=== PATIENT | male | born 1960 ===

== ENCOUNTER 2025-06-03 10:22 | Inpatient (IN) | payer MEDICARE ==
[~2025-06-03] VITALS: Ht 170.2 cm; Wt 100.4 kg
[~2025-06-03 10:22] MED LIST: ASPI-1444 PO; CLOP75TA83 PO; GABA-1181 PO; INSLAN SQ; INSREG SQ; IPRA4AER IH; LIDO-57 TP; MONT-35 PO; MULT-248 PO; NALO4SPR NASAL; OLOP5DRO28 OU; OMEP-148 PO; ONDA-104 PO; PRAZ1 PO; RISP-31 PO; ROSU20TA98 PO; SERT-162 PO; THEO300T52 PO; TRAM50TA5 PO
[2025-06-03 10:40] LABS: ABG BASE EXCESS 4.2 mmol/L (-2.0-3.0); ABG CARBOXYHEMOGLOBIN 1.0 % (0.5-1.5); ABG HCO3 28.0 mmol/L (21.0-28.0); ABG METHEMOGLOBIN 1.0 % (0.0-1.5); ABG OXYGEN CONTENT 12.5 mL/dL (15.0-23.0); ABG OXYGEN SATURATION 98.6 % (94.0-98.0); ABG OXYHEMOGLOBIN 96.6 % (94.0-98.0); ABG PCO2 40 mmHg (32.0-48.0); ABG PH 7.465 (7.350-7.450); ABG TOTAL HEMOGLOBIN 9.1 G/dL (13.5-17.5); FRACTIONATED INSPIRED OXYGEN 100.0 % (21-100.0); PO2, ARTERIAL BG 104.7 mmHg (83.0-108.0); SOURCE, BLOOD GAS ARTERIAL; TEMPERATURE, FAHRENHEIT, BG 98.6 FAHREN (96.0-98.6)
[2025-06-03 10:41] LABS: ALLEN TEST, BLOOD GAS Positive; SITE, BLOOD GAS LFT RADIAL
[2025-06-03 10:42] LABS: ABG A-A DIFF O2 568.5 mmHg (10-20.0); FLOW, BLOOD GAS 15.00 L/min (0.00-15.00); O2 DEVICE,BLOOD GAS CPAP (ROOM AIR); PEEP,BG 5 cm H2O
[2025-06-03 10:45] VITALS: PULSE 109; RESP 19; O2SAT 100
[2025-06-03 10:53] LABS: COVID AG,FIA SOURCE NASAL SWAB
[2025-06-03 10:56] LABS: PLATELET COUNT (AUTO) 329 K/uL (150-450); RED BLOOD CELL COUNT(AUTO) 3.70 MIL/uL (4.50-5.90); RED CELL DISTRIBUTION WIDTH 19.3 % (11.5-14.5); WHITE BLOOD COUNT (AUTO) 5.2 K/uL (4.5-11.0)
[2025-06-03 11:07] LABS: CALCIUM, TOTAL 8.7 mg/dL (8.8-10.5); CREATININE 1.04 mg/dL (0.60-1.30); GLOMERULAR FILTR. RATE CALC > 60 mL/min (>60); GLUCOSE,RANDOM 189 mg/dL (70-110); SODIUM SERUM 134 mmol/L (136-145); UREA NITROGEN, BLOOD 24 mg/dL (7-18)
[2025-06-03 11:14] LABS: ASPARTATE AMINOTRANSFERASE 53.0 U/L (15-37); CREATINE KINASE, TOTAL ONLY 135.0 U/L (39-308); TOTAL PROTEIN, SERUM 7.6 g/dL (6.4-8.2)
[2025-06-03 11:15] LABS: TROPONIN I-HIGH SENSITIVITY 48 ng/L (<76)
[2025-06-03 11:45] LABS: RBC MORPHOLOGY COMMENT ABNORMAL RBC MORPH
[2025-06-03 12:12] LABS: SARS-COV2 (COVID) ANTIGEN,FIA Negative (Negative)
[2025-06-03 12:54] LABS: INFLUENZA TYPE A NEGATIVE FOR TYPE A (NEGATIVE); INFLUENZA TYPE B NEGATIVE FOR TYPE B (NEGATIVE)
[2025-06-03] MEDS: FUROSEMIDE 40 MG/4 ML VIAL IVP ONE (13:01)
[2025-06-03] MEDS: CefTRIAXone 1 GM/DEXTROSE 50 ML IV ONE (13:01)
[2025-06-03 13:10] VITALS: PULSE 103; RESP 20; O2SAT 96
[2025-06-03] MEDS ORDERED: SODIUM CHLORIDE 0.9% 100 ML ONE (13:15)
[2025-06-03] MEDS ORDERED: 0.9% SODIUM CHLORIDE 10 ML SYRINGE IVP ONE (13:15)
[2025-06-03] MEDS ORDERED: IOHEXOL 350 MG/ML 100 ML VIAL ONE (13:15)
[2025-06-03 13:27] LABS: LACTIC ACID 1.4 mmol/L (0.4-2.0)
[2025-06-03] MEDS: AZITHROMYCIN 500 MG/NS 250 ML IV ONE (13:35)
[2025-06-03] MEDS ORDERED: DEXTROSE 50%-WATER 25 GM/50 ML SYRINGE IVP PRN (14:15)
[2025-06-03] MEDS ORDERED: MAGNESIUM HYDROXIDE SUSPENSION 30 ML UDCUP PO PRN (14:30)
[2025-06-03] MEDS: HEPARIN SODIUM,PORCINE 5,000 UNITS/ML VIAL SQ SCH (15:12)
[2025-06-03] MEDS ORDERED: 0.9% SODIUM CHLORIDE 5 ML NEB SOLUTION NEB ONE (16:06)
[2025-06-03 16:09] VITALS: PULSE 54; RESP 31; O2SAT 99
[2025-06-03] MEDS: ALBUTEROL SULFATE 2.5 MG/0.5 ML NEB SOLUTION NEB PRN (16:09)
[2025-06-03 16:11] VITALS: PULSE 115; RESP 28; O2SAT 100
[2025-06-03 16:24] VITALS: PULSE 104; RESP 28; O2SAT 100
[2025-06-03 16:51] LABS: APPEARANCE,URINE CLEAR (CLEAR); GLUCOSE, URINE (UA) 300-500 mg/dL (NEGATIVE); LEUKOCYTE ESTERASE ,URINE NEGATIVE (NEGATIVE); NITRATE,URINE NEGATIVE (NEGATIVE); OCCULT BLOOD,URINE TRACE (NEGATIVE); SPECIFIC GRAVITIY, URINE 1.035 (1.003-1.030)
[2025-06-03] MEDS: LORazepam 2 MG/ML VIAL IVP PRN (18:05)
[2025-06-03] MEDS: DOCUSATE SODIUM 100 MG CAPSULE PO SCH (20:13)
[2025-06-03 20:24] LABS: SITE, BLOOD GAS LFT RADIAL; SOURCE, BLOOD GAS ABG
[2025-06-03 20:25] LABS: ABG BASE EXCESS 5.3 mmol/L (-2.0-3.0); ABG CARBOXYHEMOGLOBIN 0.5 % (0.5-1.5); ABG HCO3 28.5 mmol/L (21.0-28.0); ABG METHEMOGLOBIN 1.0 % (0.0-1.5); ABG OXYGEN SATURATION 97.8 % (94.0-98.0); ABG OXYHEMOGLOBIN 97.8 % (94.0-98.0); ABG PCO2 51 mmHg (32.0-48.0); ABG PH 7.388 (7.350-7.450); ABG TOTAL HEMOGLOBIN 9.9 G/dL (13.5-17.5); ALLEN TEST, BLOOD GAS POS; PO2, ARTERIAL BG 146.3 mmHg (83.0-108.0); TEMPERATURE, FAHRENHEIT, BG 98.6 FAHREN (96.0-98.6)
[2025-06-03 20:26] LABS: ABG A-A DIFF O2 15.4 mmHg (10-20.0); FRACTIONATED INSPIRED OXYGEN 50.0 % (21-100.0); O2 DEVICE,BLOOD GAS BIPAP (ROOM AIR); PEEP,BG 4 cm H2O; SET RATE, BG 16.0 min.
[2025-06-03 21:00] VITALS: BP 94/60; PULSE 105; PULSE 109; RESP 22; RESP 25; TEMP 97; O2SAT 100; O2SAT 98
[2025-06-03 21:45] LABS: GLUCOMETER DEV NAME(LOC) ICUN.7; GLUCOSE,POINT OF CARE 213 MG/DL (70-110)
[2025-06-03] MEDS: ETHYL ALCOHOL 62% ANTISEPTIC NASAL SANITIZER 0.6 ML AMPUL NASAL SCH (21:57)
[2025-06-03] MEDS: CHLORHEXIDINE GLUCONATE 2% TOWELETTE [2'S/6'S] TP SCH (21:58)
[2025-06-03] MEDS: INSULIN LISPRO 100 UNITS/ML SQ PRN (22:31)
[2025-06-04] VITALS (13 sets, daily range): BP systolic 85–134; BP diastolic 57–94; PULSE 92–115; RESP 20–34; TEMP 97–97.8; O2SAT 89–100
[2025-06-04 01:39] LABS: ABG OXYGEN CONTENT 13.9 mL/dL (15.0-23.0)
[2025-06-04 06:09] LABS: CALCIUM, TOTAL 8.7 mg/dL (8.8-10.5); CREATININE 0.92 mg/dL (0.60-1.30); GLOMERULAR FILTR. RATE CALC > 60 mL/min (>60); GLUCOSE,RANDOM 190 mg/dL (70-110); SODIUM SERUM 137 mmol/L (136-145); UREA NITROGEN, BLOOD 29 mg/dL (7-18)
[2025-06-04 06:29] LABS: PLATELET COUNT (AUTO) 340 K/uL (150-450); RED BLOOD CELL COUNT(AUTO) 3.93 MIL/uL (4.50-5.90); RED CELL DISTRIBUTION WIDTH 19.4 % (11.5-14.5); WHITE BLOOD COUNT (AUTO) 1.7 K/uL (4.5-11.0)
[2025-06-04 06:46] LABS: RBC MORPHOLOGY COMMENT ABNORMAL RBC MORPH
[2025-06-04 07:06] LABS: GLUCOMETER DEV NAME(LOC) ICUN.7; GLUCOSE,POINT OF CARE 222 MG/DL (70-110)
[2025-06-04] MEDS: FUROSEMIDE 20 MG/2 ML VIAL IVP SCH (08:35)
[2025-06-04] MEDS: PANTOPRAZOLE SODIUM 40 MG/VIAL IVP SCH (08:35)
[2025-06-04] MEDS: DEXMEDETOMIDINE 400 MCG/NS 100 ML IV PRN (12:06)
[2025-06-04 12:20] LABS: GLUCOMETER DEV NAME(LOC) ICUN.7; GLUCOSE,POINT OF CARE 152 MG/DL (70-110)
[2025-06-04 12:26] LABS: ABG A-A DIFF O2 45.0 mmHg (10-20.0); ABG BASE EXCESS -0.5 mmol/L (-2.0-3.0); ABG CARBOXYHEMOGLOBIN 0.4 % (0.5-1.5); ABG HCO3 24.2 mmol/L (21.0-28.0); ABG METHEMOGLOBIN 0.0 % (0.0-1.5); ABG OXYGEN CONTENT 11.6 mL/dL (15.0-23.0); ABG OXYGEN SATURATION 96.3 % (94.0-98.0); ABG OXYHEMOGLOBIN 95.9 % (94.0-98.0); ABG PCO2 34 mmHg (32.0-48.0); ABG PH 7.452 (7.350-7.450); ABG TOTAL HEMOGLOBIN 8.5 G/dL (13.5-17.5); FRACTIONATED INSPIRED OXYGEN 24.0 % (21-100.0); O2 DEVICE,BLOOD GAS BIPAP (ROOM AIR); PATIENT RATE, BG 28.0 min.; PO2, ARTERIAL BG 85.8 mmHg (83.0-108.0); SET RATE, BG 16.0 min.; SITE, BLOOD GAS RT BRACHIAL; SOURCE, BLOOD GAS ARTERIAL; TEMPERATURE, FAHRENHEIT, BG 97.0 FAHREN (96.0-98.6)
[2025-06-04 12:27] LABS: INSPIRATORY TIME, BG 0.9 SEC; PRESSURE SUPPORT, BG 12 cm H2O; SPONTANEOUS VT, BG 540 ml
[2025-06-04] MEDS: CefTRIAXone 1 GM/DEXTROSE 50 ML IV SCH (12:56)
[2025-06-04] MEDS ORDERED: SODIUM CHLORIDE 0.9% 250 ML IV ONE (12:58)
[2025-06-04] MEDS: AZITHROMYCIN 500 MG/NS 250 ML IV SCH (13:45)
[2025-06-04 19:06] LABS: GLUCOMETER DEV NAME(LOC) ICU.S7; GLUCOSE,POINT OF CARE 183 MG/DL (70-110)
[2025-06-05] VITALS (18 sets, daily range): BP systolic 97–105; BP diastolic 61–74; PULSE 87–105; RESP 18–31; TEMP 97.7–98.9; O2SAT 95–100
[2025-06-05 00:12] LABS: GLUCOMETER DEV NAME(LOC) ICUN.7; GLUCOSE,POINT OF CARE 179 MG/DL (70-110)
[2025-06-05] MEDS ORDERED: ALBUTEROL SULFATE 2.5 MG/0.5 ML 5 ML NEB SOLUTION NEB ONE (00:38)
[2025-06-05 06:18] LABS: CALCIUM, TOTAL 8.4 mg/dL (8.8-10.5); CREATININE 1.24 mg/dL (0.60-1.30); GLOMERULAR FILTR. RATE CALC 59.0 mL/min (>60); GLUCOSE,RANDOM 334.0 mg/dL (70-110); SODIUM SERUM 132.0 mmol/L (136-145); UREA NITROGEN, BLOOD 50.0 mg/dL (7-18)
[2025-06-05 06:55] LABS: C.DIFF GDH ANTIGEN, Stool Negative (Negative); C.DIFF TOXINS A&B, Stool Negative (Negative)
[2025-06-05 11:54] LABS: PLATELET COUNT (AUTO) 318 K/uL (150-450); RED BLOOD CELL COUNT(AUTO) 3.57 MIL/uL (4.50-5.90); RED CELL DISTRIBUTION WIDTH 19.4 % (11.5-14.5); WHITE BLOOD COUNT (AUTO) 3.9 K/uL (4.5-11.0)
[2025-06-05 17:20] LABS: GLUCOMETER DEV NAME(LOC) 5N.1D; GLUCOSE,POINT OF CARE 327 MG/DL (70-110)
[2025-06-05 17:21] LABS: GLUCOMETER DEV NAME(LOC) 5N.1D; GLUCOSE,POINT OF CARE 274 MG/DL (70-110)
[2025-06-05 17:21] LABS: GLUCOMETER DEV NAME(LOC) 5N.1D; GLUCOSE,POINT OF CARE 418 MG/DL (70-110)
[2025-06-05] MEDS: INSULIN LISPRO 100 UNITS/ML SQ ONE (17:26)
[2025-06-05 20:40] LABS: GLUCOMETER DEV NAME(LOC) 5N.1D; GLUCOSE,POINT OF CARE 336 MG/DL (70-110)
[2025-06-05] MEDS: BUDESONIDE 0.5 MG/2 ML NEB SOLUTION NEB SCH (20:59)
[2025-06-06] VITALS (12 sets, daily range): BP systolic 101–151; BP diastolic 64–98; PULSE 90–110; RESP 16–33; TEMP 97.5–98.2; O2SAT 98–100
[2025-06-06] MEDS: ACETAMINOPHEN 325 MG TABLET PO PRN (01:49)
[2025-06-06 06:42] LABS: PLATELET COUNT (AUTO) 282 K/uL (150-450); RED BLOOD CELL COUNT(AUTO) 3.78 MIL/uL (4.50-5.90); RED CELL DISTRIBUTION WIDTH 19.2 % (11.5-14.5); WHITE BLOOD COUNT (AUTO) 3.5 K/uL (4.5-11.0)
[2025-06-06 06:59] LABS: CALCIUM, TOTAL 8.4 mg/dL (8.8-10.5); CREATININE 1.66 mg/dL (0.60-1.30); GLOMERULAR FILTR. RATE CALC 42.0 mL/min (>60); SODIUM SERUM 128.0 mmol/L (136-145); UREA NITROGEN, BLOOD 68.0 mg/dL (7-18)
[2025-06-06 07:01] LABS: GLUCOSE,RANDOM 412.0 mg/dL (70-110)
[2025-06-06 08:11] LABS: GLUCOMETER DEV NAME(LOC) 5S.2E; GLUCOSE,POINT OF CARE 379 MG/DL (70-110)
[2025-06-06 11:55] LABS: GLUCOMETER DEV NAME(LOC) 5S.2E; GLUCOSE,POINT OF CARE 348 MG/DL (70-110)
[2025-06-06 18:46] LABS: GLUCOMETER DEV NAME(LOC) 5N.1D; GLUCOSE,POINT OF CARE 364 MG/DL (70-110)
[2025-06-06 22:31] LABS: GLUCOMETER DEV NAME(LOC) 5S.2E; GLUCOSE,POINT OF CARE 367 MG/DL (70-110)
[2025-06-07] VITALS (17 sets, daily range): BP systolic 105–127; BP diastolic 69–85; PULSE 72–110; RESP 19–30; TEMP 97.6–98.1; O2SAT 94–100
[2025-06-07] MEDS ORDERED: DEXTROSE 50%-WATER 25 GM/50 ML SYRINGE IVP PRN (06:30)
[2025-06-07] MEDS: INSULIN GLARGINE,HUM.REC.ANLOG 100 UNITS/ML SQ ONE (06:41)
[2025-06-07] MEDS: INSULIN LISPRO 100 UNITS/ML SQ PRN (06:42)
[2025-06-07 07:10] LABS: GLUCOMETER DEV NAME(LOC) 5N.1D; GLUCOSE,POINT OF CARE 555 MG/DL (70-110)
[2025-06-07 07:16] LABS: GLUCOMETER DEV NAME(LOC) 5S.2E; GLUCOSE,POINT OF CARE 529 MG/DL (70-110)
[2025-06-07 09:42] LABS: PLATELET COUNT (AUTO) 239 K/uL (150-450); RED BLOOD CELL COUNT(AUTO) 3.56 MIL/uL (4.50-5.90); RED CELL DISTRIBUTION WIDTH 18.6 % (11.5-14.5); WHITE BLOOD COUNT (AUTO) 3.8 K/uL (4.5-11.0)
[2025-06-07 09:45] LABS: RBC MORPHOLOGY COMMENT ABNORMAL RBC MORPH
[2025-06-07 09:51] LABS: CALCIUM, TOTAL 8.2 mg/dL (8.8-10.5); CREATININE 1.41 mg/dL (0.60-1.30); GLOMERULAR FILTR. RATE CALC 51.0 mL/min (>60); GLUCOSE,RANDOM 378.0 mg/dL (70-110); SODIUM SERUM 132.0 mmol/L (136-145); UREA NITROGEN, BLOOD 53.0 mg/dL (7-18)
[2025-06-07 12:40] LABS: GLUCOMETER DEV NAME(LOC) 5S.2E; GLUCOSE,POINT OF CARE 364 MG/DL (70-110)
[2025-06-07 22:56] LABS: GLUCOMETER DEV NAME(LOC) 5S.2E; GLUCOSE,POINT OF CARE 337 MG/DL (70-110)
[2025-06-07 22:56] LABS: GLUCOMETER DEV NAME(LOC) 5N.1D; GLUCOSE,POINT OF CARE 242 MG/DL (70-110)
[2025-06-08] VITALS (21 sets, daily range): BP systolic 91–126; BP diastolic 54–80; PULSE 76–96; RESP 20–32; TEMP 97.9–98.1; O2SAT 95–100
[2025-06-08 08:36] LABS: PLATELET COUNT (AUTO) 223 K/uL (150-450); RED BLOOD CELL COUNT(AUTO) 3.79 MIL/uL (4.50-5.90); RED CELL DISTRIBUTION WIDTH 18.1 % (11.5-14.5); WHITE BLOOD COUNT (AUTO) 4.6 K/uL (4.5-11.0)
[2025-06-08] MEDS ORDERED: 0.9% SODIUM CHLORIDE 5 ML NEB SOLUTION NEB ONE ×2 (08:36)
[2025-06-08 08:41] LABS: GLUCOMETER DEV NAME(LOC) 5N.1D; GLUCOSE,POINT OF CARE 280 MG/DL (70-110)
[2025-06-08 08:52] LABS: CALCIUM, TOTAL 8.4 mg/dL (8.8-10.5); CREATININE 1.14 mg/dL (0.60-1.30); GLOMERULAR FILTR. RATE CALC > 60 mL/min (>60); GLUCOSE,RANDOM 264 mg/dL (70-110); SODIUM SERUM 131 mmol/L (136-145); UREA NITROGEN, BLOOD 60 mg/dL (7-18)
[2025-06-08 12:00] LABS: RBC MORPHOLOGY COMMENT ABNORMAL RBC MORPH
[2025-06-08] MEDS: INSULIN GLARGINE,HUM.REC.ANLOG 100 UNITS/ML SQ SCH (17:15)
[2025-06-08 17:20] LABS: GLUCOMETER DEV NAME(LOC) 5S.1E; GLUCOSE,POINT OF CARE 475 MG/DL (70-110)
[2025-06-08 17:20] LABS: GLUCOMETER DEV NAME(LOC) 5S.1E; GLUCOSE,POINT OF CARE 366 MG/DL (70-110)
[2025-06-08 20:31] LABS: GLUCOMETER DEV NAME(LOC) 5N.1D; GLUCOSE,POINT OF CARE 479 MG/DL (70-110)
[2025-06-08 23:01] LABS: GLUCOMETER DEV NAME(LOC) 5S.1E; GLUCOSE,POINT OF CARE 360 MG/DL (70-110)
[2025-06-09] VITALS (21 sets, daily range): BP systolic 101–140; BP diastolic 55–94; PULSE 72–93; RESP 20–28; TEMP 97.7–98.2; O2SAT 97–100
[2025-06-09 06:41] LABS: PLATELET COUNT (AUTO) 187 K/uL (150-450); RED BLOOD CELL COUNT(AUTO) 3.47 MIL/uL (4.50-5.90); RED CELL DISTRIBUTION WIDTH 18.1 % (11.5-14.5); WHITE BLOOD COUNT (AUTO) 4.1 K/uL (4.5-11.0)
[2025-06-09 07:12] LABS: CALCIUM, TOTAL 8.3 mg/dL (8.8-10.5); CREATININE 1.25 mg/dL (0.60-1.30); GLOMERULAR FILTR. RATE CALC 58.0 mL/min (>60); GLUCOSE,RANDOM 389.0 mg/dL (70-110); SODIUM SERUM 130.0 mmol/L (136-145); UREA NITROGEN, BLOOD 60.0 mg/dL (7-18)
[2025-06-09 08:31] LABS: GLUCOMETER DEV NAME(LOC) 5S.2E; GLUCOSE,POINT OF CARE 366 MG/DL (70-110)
[2025-06-09 09:26] LABS: RBC MORPHOLOGY COMMENT ABNORMAL RBC MORPH
[2025-06-09 12:15] LABS: GLUCOMETER DEV NAME(LOC) 5S.1E; GLUCOSE,POINT OF CARE 383 MG/DL (70-110)
[2025-06-09] MEDS: ONDANSETRON HCL 4 MG/2 ML VIAL IVP PRN (16:48)
[2025-06-09] MEDS: FUROSEMIDE 20 MG/2 ML VIAL IVP SCH (20:09)
[2025-06-09 21:01] LABS: GLUCOMETER DEV NAME(LOC) 5N.1D; GLUCOSE,POINT OF CARE 387 MG/DL (70-110)
[2025-06-10] VITALS (8 sets, daily range): BP systolic 99–150; BP diastolic 66–101; PULSE 77–89; RESP 18–24; TEMP 97.5–98.1; O2SAT 95–100
[2025-06-10 06:20] LABS: GLUCOMETER DEV NAME(LOC) 5S.1E; GLUCOSE,POINT OF CARE 411 MG/DL (70-110)
[2025-06-10 06:28] LABS: PLATELET COUNT (AUTO) 187 K/uL (150-450); RED BLOOD CELL COUNT(AUTO) 3.45 MIL/uL (4.50-5.90); RED CELL DISTRIBUTION WIDTH 18.1 % (11.5-14.5); WHITE BLOOD COUNT (AUTO) 5.2 K/uL (4.5-11.0)
[2025-06-10 06:40] LABS: GLUCOMETER DEV NAME(LOC) 5N.1D; GLUCOSE,POINT OF CARE 193 MG/DL (70-110)
[2025-06-10 06:44] LABS: CALCIUM, TOTAL 8.2 mg/dL (8.8-10.5); CREATININE 1.14 mg/dL (0.60-1.30); GLOMERULAR FILTR. RATE CALC > 60 mL/min (>60); GLUCOSE,RANDOM 197 mg/dL (70-110); SODIUM SERUM 133 mmol/L (136-145); TROPONIN I-HIGH SENSITIVITY 29 ng/L (<76); UREA NITROGEN, BLOOD 61 mg/dL (7-18)
[2025-06-10 07:47] LABS: RBC MORPHOLOGY COMMENT ABNORMAL RBC MORPH
[2025-06-10] MEDS ORDERED: GADOTERATE MEGLUMINE 10 MMOL/20 ML VIAL IVP ONE (09:56)
[2025-06-10] MEDS: FUROSEMIDE 20 MG/2 ML VIAL IVP SCH (11:22)
[2025-06-10] MEDS: INSULIN GLARGINE,HUM.REC.ANLOG 100 UNITS/ML SQ ONE (12:00)
[2025-06-10] MEDS ORDERED: SODIUM CHLORIDE 0.9% 500 ML IV ONE (12:41)
[2025-06-10 15:11] LABS: GLUCOMETER DEV NAME(LOC) 5S.2E; GLUCOSE,POINT OF CARE 206 MG/DL (70-110)
[2025-06-10] MEDS: SODIUM ZIRCONIUM CYCLOSILICATE 5 GM POWDER PACKET PO ONE (15:48)
[2025-06-10] MEDS: INSULIN GLARGINE,HUM.REC.ANLOG 100 UNITS/ML SQ SCH (20:55)
[2025-06-11] VITALS (14 sets, daily range): BP systolic 97–114; BP diastolic 57–76; PULSE 81–90; RESP 15–26; TEMP 97.3–98.8; O2SAT 99–100
[2025-06-11 06:24] LABS: PLATELET COUNT (AUTO) 188 K/uL (150-450); RED BLOOD CELL COUNT(AUTO) 3.60 MIL/uL (4.50-5.90); RED CELL DISTRIBUTION WIDTH 18.5 % (11.5-14.5); WHITE BLOOD COUNT (AUTO) 4.4 K/uL (4.5-11.0)
[2025-06-11 06:40] LABS: RBC MORPHOLOGY COMMENT ABNORMAL RBC MORPH
[2025-06-11 06:42] LABS: CALCIUM, TOTAL 8.2 mg/dL (8.8-10.5); CREATININE 1.16 mg/dL (0.60-1.30); GLOMERULAR FILTR. RATE CALC > 60 mL/min (>60); GLUCOSE,RANDOM 333 mg/dL (70-110); SODIUM SERUM 132 mmol/L (136-145); UREA NITROGEN, BLOOD 54 mg/dL (7-18)
[2025-06-11 07:54] LABS: PH,URINE DRUG SCREEN 5.0 (5.0-8.0)
[2025-06-11 08:10] LABS: ALCOHOL, URINE DRUG SCREEN NEGATIVE (NEGATIVE); AMPHET/METH SCREEN,URINE NEGATIVE (NEGATIVE); BARBITURATE SCREEN, URINE NEGATIVE (NEGATIVE); CANNABINOID SCREEN,URINE NEGATIVE (NEGATIVE); COCAINE SCREEN,URINE NEGATIVE (NEGATIVE); METHADONE SCREEN, URINE NEGATIVE (NEGATIVE)
[2025-06-11 08:16] LABS: GLUCOMETER DEV NAME(LOC) 5N.1D; GLUCOSE,POINT OF CARE 281 MG/DL (70-110)
[2025-06-11 08:17] LABS: GLUCOMETER DEV NAME(LOC) 5S.2E; GLUCOSE,POINT OF CARE 284 MG/DL (70-110)
[2025-06-11 08:17] LABS: GLUCOMETER DEV NAME(LOC) 5S.2E; GLUCOSE,POINT OF CARE 336 MG/DL (70-110)
[2025-06-11] MEDS: INSULIN GLARGINE,HUM.REC.ANLOG 100 UNITS/ML SQ ONE (12:27)
[2025-06-11 17:36] LABS: GLUCOMETER DEV NAME(LOC) 5S.2E; GLUCOSE,POINT OF CARE 315 MG/DL (70-110)
[2025-06-11 17:36] LABS: GLUCOMETER DEV NAME(LOC) 5S.2E; GLUCOSE,POINT OF CARE 270 MG/DL (70-110)
[2025-06-12] VITALS (12 sets, daily range): BP systolic 92–114; BP diastolic 60–77; PULSE 70–89; RESP 17–26; TEMP 97.6–98.4; O2SAT 95–100
[2025-06-12 08:08] LABS: PLATELET COUNT (AUTO) 202 K/uL (150-450); RED BLOOD CELL COUNT(AUTO) 3.75 MIL/uL (4.50-5.90); RED CELL DISTRIBUTION WIDTH 17.9 % (11.5-14.5); WHITE BLOOD COUNT (AUTO) 5.8 K/uL (4.5-11.0)
[2025-06-12 08:25] LABS: CALCIUM, TOTAL 8.2 mg/dL (8.8-10.5); CREATININE 0.97 mg/dL (0.60-1.30); GLOMERULAR FILTR. RATE CALC > 60 mL/min (>60); GLUCOSE,RANDOM 274 mg/dL (70-110); UREA NITROGEN, BLOOD 49 mg/dL (7-18)
[2025-06-12 08:29] LABS: SODIUM SERUM 133 mmol/L (136-145)
[2025-06-12] MEDS: INSULIN GLARGINE,HUM.REC.ANLOG 100 UNITS/ML SQ SCH (08:48)
[2025-06-12 12:11] LABS: GLUCOMETER DEV NAME(LOC) 5S.2E; GLUCOSE,POINT OF CARE 281 MG/DL (70-110)
[2025-06-12 12:11] LABS: GLUCOMETER DEV NAME(LOC) 5S.2E; GLUCOSE,POINT OF CARE 423 MG/DL (70-110)
[2025-06-12 12:11] LABS: GLUCOMETER DEV NAME(LOC) 5S.2E; GLUCOSE,POINT OF CARE 269 MG/DL (70-110)
[2025-06-13] VITALS (8 sets, daily range): BP systolic 92–120; BP diastolic 64–67; PULSE 75–87; RESP 16–20; TEMP 97.7–98.5; O2SAT 97–100
[2025-06-13 04:35] LABS: GLUCOMETER DEV NAME(LOC) 5N.1D; GLUCOSE,POINT OF CARE 402 MG/DL (70-110)
[2025-06-13 08:36] LABS: GLUCOMETER DEV NAME(LOC) 5N.1D; GLUCOSE,POINT OF CARE 202 MG/DL (70-110)
[2025-06-13] MEDS: FUROSEMIDE 20 MG/2 ML VIAL IVP SCH (08:43)
[2025-06-13 09:05] LABS: PLATELET COUNT (AUTO) 203 K/uL (150-450); RED BLOOD CELL COUNT(AUTO) 4.01 MIL/uL (4.50-5.90); RED CELL DISTRIBUTION WIDTH 18.3 % (11.5-14.5); WHITE BLOOD COUNT (AUTO) 5.8 K/uL (4.5-11.0)
[2025-06-13 09:14] LABS: CALCIUM, TOTAL 8.4 mg/dL (8.8-10.5); CREATININE 0.83 mg/dL (0.60-1.30); GLOMERULAR FILTR. RATE CALC > 60 mL/min (>60); GLUCOSE,RANDOM 160 mg/dL (70-110); SODIUM SERUM 133 mmol/L (136-145); UREA NITROGEN, BLOOD 41 mg/dL (7-18)
[2025-06-13] MEDS: EMPAGLIFLOZIN 10 MG TABLET PO SCH (11:06)
[2025-06-13] MEDS: SPIRONOLACTONE 25 MG TABLET PO SCH (11:17)
[2025-06-13 13:51] LABS: GLUCOMETER DEV NAME(LOC) 5S.2E; GLUCOSE,POINT OF CARE 220 MG/DL (70-110)
[2025-06-13] MEDS ORDERED: INSU3INS3 SQ (16:10)
[2025-06-13] MEDS ORDERED: SPIR-37 PO (16:10)
[2025-06-13] MEDS ORDERED: FURO20TA5 PO (16:10)
[2025-06-13] MEDS ORDERED: CARV3 PO (16:10)
[2025-06-13] MEDS ORDERED: AMOX-457 PO (16:10)
[2025-06-13] MEDS ORDERED: IPRA3AMP24 NEB (16:10)
[2025-06-13] MEDS ORDERED: LOSA-417 PO (16:10)
[2025-06-13] MEDS ORDERED: EMPA10TA3 PO (16:10)
[2025-06-13] MEDS ORDERED: PRED10TA3 PO (16:10)
[2025-06-13] MEDS ORDERED: HYDR-3831 PO (16:10)
[2025-06-13] MEDS ORDERED: BUDE0.5A NEB (16:10)
[2025-06-13 18:15] LABS: GLUCOMETER DEV NAME(LOC) 5S.2E; GLUCOSE,POINT OF CARE 233 MG/DL (70-110)
[2025-06-14] MEDS ORDERED: LOSARTAN POTASSIUM 25 MG TABLET PO SCH (09:00)
== END 2025-06-13 18:40 | disposition home or self-care (01) | DRG 291 ==
LOC: EMS 10:22 → EDBD 10:22 → EDH 14:18 → ICU 21:04 → 5S 06-05 03:15
PROVIDERS: ADMIT Internal Medicine; ATTEND Internal Medicine
PROC: 5A09357 Assistance with Respiratory Ventilation, Less than 24 Consecutive Hours, Continuous Positive Airway Pressure (ICD-10-PCS; principal; 2025-06-03)
PROC: 5A09357 Assistance with Respiratory Ventilation, Less than 24 Consecutive Hours, Continuous Positive Airway Pressure (ICD-10-PCS; 2025-06-04)
PROC: 5A0935A Assistance with Respiratory Ventilation, Less than 24 Consecutive Hours, High Flow/Velocity Cannula (ICD-10-PCS; 2025-06-04)
PROC: 5A09357 Assistance with Respiratory Ventilation, Less than 24 Consecutive Hours, Continuous Positive Airway Pressure (ICD-10-PCS; 2025-06-05)
PROC: 5A09357 Assistance with Respiratory Ventilation, Less than 24 Consecutive Hours, Continuous Positive Airway Pressure (ICD-10-PCS; 2025-06-07)
PROC: 5A09357 Assistance with Respiratory Ventilation, Less than 24 Consecutive Hours, Continuous Positive Airway Pressure (ICD-10-PCS; 2025-06-08)
PROC: 5A09357 Assistance with Respiratory Ventilation, Less than 24 Consecutive Hours, Continuous Positive Airway Pressure (ICD-10-PCS; 2025-06-09)
PROC: 5A09357 Assistance with Respiratory Ventilation, Less than 24 Consecutive Hours, Continuous Positive Airway Pressure (ICD-10-PCS; 2025-06-10)
PROC: 5A09357 Assistance with Respiratory Ventilation, Less than 24 Consecutive Hours, Continuous Positive Airway Pressure (ICD-10-PCS; 2025-06-11)
DX: I50.23 Acute on chronic systolic (congestive) heart failure (principal); J18.9 Pneumonia, unspecified organism; J96.21 Acute and chronic respiratory failure with hypoxia; G93.40 Encephalopathy, unspecified; E87.1 Hypo-osmolality and hyponatremia; E66.2 Morbid (severe) obesity with alveolar hypoventilation; J44.0 Chronic obstructive pulmonary disease with (acute) lower respiratory infection; I47.20 Ventricular tachycardia, unspecified; M86.8X7 Other osteomyelitis, ankle and foot; N17.9 Acute kidney failure, unspecified; D72.819 Decreased white blood cell count, unspecified; L08.9 Local infection of the skin and subcutaneous tissue, unspecified; I27.20 Pulmonary hypertension, unspecified; D64.9 Anemia, unspecified; E11.40 Type 2 diabetes mellitus with diabetic neuropathy, unspecified; I34.0 Nonrheumatic mitral (valve) insufficiency; J44.1 Chronic obstructive pulmonary disease with (acute) exacerbation; T81.31XA Disruption of external operation (surgical) wound, not elsewhere classified, initial encounter; F17.210 Nicotine dependence, cigarettes, uncomplicated; I25.10 Atherosclerotic heart disease of native coronary artery without angina pectoris; E11.51 Type 2 diabetes mellitus with diabetic peripheral angiopathy without gangrene; Z20.822 Contact with and (suspected) exposure to COVID-19; E11.65 Type 2 diabetes mellitus with hyperglycemia; E11.69 Type 2 diabetes mellitus with other specified complication; I44.7 Left bundle-branch block, unspecified; Z79.4 Long term (current) use of insulin; Z91.199 Patient's noncompliance with other medical treatment and regimen due to unspecified reason; Z79.899 Other long term (current) drug therapy; Z95.1 Presence of aortocoronary bypass graft; Z99.81 Dependence on supplemental oxygen; Z68.34 Body mass index [BMI] 34.0-34.9, adult
CPT/HCPCS: 36245; 36569; 36600; 71045; 71275; 73720; 76937; 80048; 80076; 80307; 81001; 82550; 82805; 82962; 83605; 83880; 84484; 85025; 85379; 87040; 87081; 87324; 87449; 87804; 93005; 93306; 93971; 94640; 94644; 94660; 94760; 96365; 96368; 96375; 97116; 97163; 97530; 99291; G0378; J0456; J0696; J1120; J1644; J1815; J1938; J2060; J2405; J2470; J2919; J7040; J7050; 36415-L1; 36415-TC; 82803-TC; J7613